=== PATIENT | female | born 2000 | race Caucasian/White ===

== ENCOUNTER → 2024-02-05 16:22 | Outpatient (REF) | payer BC, SELFPAY | LOC: RAD 16:22 | PROVIDERS: ATTENDING PHYSICIAN Internal Medicine; FAMILY PHYSICIAN Family Medicine | DX: R14.0 Abdominal distension (gaseous) (principal); K58.1 Irritable bowel syndrome with constipation | CPT/HCPCS: 74019 ==

== ENCOUNTER 2024-03-17 16:52 | Outpatient (RCR) | payer BC, SELFPAY | END 2024-03-17 23:59 | disposition home or self-care (01) | LOC: RPT 16:52 | PROVIDERS: ATTENDING PHYSICIAN Internal Medicine; FAMILY PHYSICIAN Family Medicine | DX: K59.00 Constipation, unspecified (principal); R10.2 Pelvic and perineal pain; M62.89 Other specified disorders of muscle; Z73.6 Limitation of activities due to disability | CPT/HCPCS: 97110; 97112; 97140; 97162; 97530 ==

== ENCOUNTER 2024-04-22 09:58 | Outpatient (RCR) | payer BC, SELFPAY | END 2024-04-22 23:59 | disposition home or self-care (01) | LOC: RPT 09:58 | PROVIDERS: ATTENDING PHYSICIAN Internal Medicine; FAMILY PHYSICIAN Family Medicine | DX: K59.00 Constipation, unspecified (principal); R10.2 Pelvic and perineal pain; M62.89 Other specified disorders of muscle; Z73.6 Limitation of activities due to disability | CPT/HCPCS: 97014; 97110; 97112; 97140 ==

== ENCOUNTER 2024-05-19 11:03 | Outpatient (RCR) | payer BC, SELFPAY | END 2024-05-19 23:59 | disposition home or self-care (01) | LOC: RPT 11:03 | PROVIDERS: ATTENDING PHYSICIAN Internal Medicine; FAMILY PHYSICIAN Family Medicine | DX: K59.00 Constipation, unspecified (principal); R10.2 Pelvic and perineal pain; M62.89 Other specified disorders of muscle; Z73.6 Limitation of activities due to disability | CPT/HCPCS: 97010; 97014; 97110; 97140; 97530 ==

== ENCOUNTER 2024-06-16 12:54 | Outpatient (RCR) | payer BC, SELFPAY | END 2024-06-16 15:55 | disposition home or self-care (01) | LOC: RPT 12:54 | PROVIDERS: ATTENDING PHYSICIAN Internal Medicine; FAMILY PHYSICIAN Family Medicine | DX: K59.00 Constipation, unspecified (principal); R10.2 Pelvic and perineal pain; M62.89 Other specified disorders of muscle; Z73.6 Limitation of activities due to disability | CPT/HCPCS: 97014; 97110; 97112; 97140 ==

== ENCOUNTER → 2025-04-22 09:52 | Outpatient (REF) | payer BC, SELFPAY ==
[2025-04-22 10:57] LABS: Hematocrit 38.4 % (37.0-47.0); Hemoglobin 12.7 g/dL (12.0-16.0); Mean Corp Hgb Conc. 33.1 g/dL (33.0-37.0); Mean Corpuscular Volume 92.1 fL (81.0-99.0); Nucleated Red Blood Cells % 0 %; Platelet Count 358 10^3/uL (130-400); Red Cell Dist. Width 12.2 % (11.5-14.5)
[2025-04-22 11:06] LABS: ALT (SGPT) 22 U/L (0-35); AST (SGOT) 23 U/L (14-36); Albumin 4.7 g/dl (3.5-5.0); Alkaline Phosphatase 54 U/L (38-126); Blood Urea Nitrogen 12 mg/dl (7-17); Calcium 9.5 mg/dl (8.4-10.2); Carbon Dioxide 24 mmol/L (22-30); Chloride 107 mmol/L (98-107); Glucose 92 mg/dl (70-99); Potassium 4.3 mmol/L (3.5-5.1); Sodium 137 mmol/L (135-145); Total Protein 8.0 g/dl (6.3-8.2); eGFR > 60.00
[2025-04-22 11:24] LABS: FSH 6.7 mIU/ml
[2025-04-22 11:38] LABS: TSH 1.33 uIU/ml (0.47-4.68)
== END ==
LOC: REG 09:52
PROVIDERS: ATTENDING PHYSICIAN Nurse Practitioner Family; FAMILY PHYSICIAN Family Medicine
DX: R63.5 Abnormal weight gain (principal); R53.83 Other fatigue; L70.0 Acne vulgaris
CPT/HCPCS: 36415; 80053; 82627; 82670; 83001; 83002; 83835; 84146; 84403; 84439; 84443; 85025

== ENCOUNTER → 2025-05-14 07:57 | Outpatient (REF) | payer BC, SELFPAY | LOC: RAD 07:57 | PROVIDERS: ATTENDING PHYSICIAN Internal Medicine Gastroenterology; FAMILY PHYSICIAN Family Medicine | DX: K59.01 Slow transit constipation (principal); R14.0 Abdominal distension (gaseous); R11.0 Nausea | CPT/HCPCS: 78264; A9541 ==